=== PATIENT | female | born 2000 | race Caucasian/White ===

== ENCOUNTER → 2019-11-29 | Day surgery (SDC) | payer OTHER ==
--- NOTE | 2019-12-02 15:43 | WOMENS IMAGING REPORT ---
EXAM DESCRIPTION: U/S BREAST BX; LEFT DIAGNOSTIC MAMMO W/CAD IMAGES COMPLETED DATE/TIME: 12/02/2019 2:34 pm; 11/29/2019 1:53 pm REASON FOR STUDY: N64.4 MASTODYNIA; N64.4 S/P LEFT US BX FOR CLIP PLACEMENT N64.4 MASTODYNIA COMPARISON: 11/14/2019. TECHNIQUE: The procedure was discussed with the patient and the patient agreed to proceed. The patient was scanned and the area of interest in the 12 o'clock position of the left breast was lo calized. This correlates with the area of concern on prior imaging studies. This area was targeted f or ultrasound-guided core biopsy. After sterile skin prep and 10 mL local lidocaine 1 % skin and deep tissue anesthesia, a 14 gauge coa xial core biopsy needle was used to obtain several cores of tissue from the lesion. Under ultrasound guidance, a V shaped clip was placed in the areas sampled. There were no immediate post-procedure c omplications. MAMMOGRAM: Post-procedure two view mammogram was acquired in the digital mammogram suite. The clip wa s in the expected location. No significant hematoma. Pathology yields a diagnosis of fibroepithelial lesion. Differential diagnosis is fibroadenoma versu s phyllodes tumor. Excisional biopsy is recommended for definitive diagnosis. Pathology is concordant. LIMITATIONS: None. FINDINGS: Ultrasound guided breast biopsy as described above. POST PROCEDURE MAMMOGRAMS FOR MARKER PLACEMENT: Yes IMPRESSION: ULTRASOUND-GUIDED CORE BIOPSY OF THE LEFT BREAST YIELDS A DIAGNOSIS OF FIBROEPITHELIAL L ESION. DIFFERENTIAL DIAGNOSIS IS FIBROADENOMA VERSUS PHYLLODES TUMOR. EXCISIONAL BIOPSY IS RECOMMEN DED FOR DEFINITIVE DIAGNOSIS. COMMENT: COMMUNICATION: Attempt was made to telephone the patient but there was no answer and the ca ll went to voicemail. The patient's provider has been notified of the findings. The provider will di scuss the findings with the patient. Patient medication list reviewed: Yes- Quality ID# [id number]:Eligible professional attests to documenting i n the medical record they obtained, updated, or reviewed the patient's current medications. TECHNICAL DOCUMENTATION: JOB ID: [id number] 2010 [employer]- All Rights Reserved Reading location - IP/workstation name: [email or web address]
== END ==
LOC: WI 12:36
PROVIDERS: ATTEND Physician Assistant
DX: N64.4 Mastodynia (principal); N64.89 Other specified disorders of breast
CPT/HCPCS: 88305 ×2; 19083; 77065; J3490